=== PATIENT | female | born 1985 | race Caucasian/White ===

== ENCOUNTER 2019-11-29 15:58 | Emergency (ER) | payer OTHER, SELFPAY ==
[~2019-11-29] VITALS: Ht 157.5 cm; Wt 84.6 kg
[2019-11-29] MEDS ORDERED: HYPERTHYROID MED (16:16)
[2019-11-29] MEDS ORDERED: EMGALITY (16:16)
--- NOTE | 2019-11-29 16:19 | NUR ---
PT TO ED FOR CONSTANT LEFT SIDED AND STERNAL CHEST PAIN AND PRESSURE X4 DAYS WITH ASSOCIATED SOB. PT ATTRIBUTES S/S TO NEW HYPERTHYROID MEDICATION (UNKNOWN). PT CONNECTED TO ALL MONITORS. VSS. NO NEEDS EXPRESSED. CALL LIGHT WITHIN REACH. AWAITING EDMD ASSESSMENT.
[2019-11-29] MEDS ORDERED: KETOROLAC 30 MG/1 ML ONE (16:48)
[2019-11-29 16:52] VITALS: BP 137/93
--- NOTE | 2019-11-29 16:52 | NUR ---
PT RESTING IN ROOM. VSS. PT DECLINING MEDICATIONS AT THIS TIME. PT RATES PAIN 2-3/10. PT STATES, "JUST LYING HERE FEELS GOOD." PT EDUCATED THAT MEDICATION IS AVAILABLE IF SHE CHANGES HER MIND AND EDUCATED [employer] LIGHT USE. NO NEEDS EXPRESSED. CALLIGHT WITHIN REACH. LABS AND CXR COMPLETE. AWAITING RESULTS.
[2019-11-29 16:57] LABS: BASOPHILS # (AUTO) 0.03 x10^3/uL (0-0.1); BASOPHILS % (AUTO) 1 % (0-1); EOSINOPHILS # (AUTO) 0.18 x10^3/uL (0-0.4); EOSINOPHILS % (AUTO) 4 % (1-7); LYMPHOCYTES # (AUTO) 1.15 x10^3/uL (1-3.4); LYMPHOCYTES % (AUTO) 24 % (22-44); MD NO; MEAN CORPUSCULAR HEMOGLOBIN 30.2 pg (27.0-34.8); MEAN CORPUSCULAR HGB CONC 34.7 g/dL (32.4-35.8); MEAN CORPUSCULAR VOLUME 87.2 fL (80-100); MEAN PLATELET VOLUME 6.9 fL (7.4-10.4); MONOCYTES % (AUTO) 6 % (2-9); NEUTROPHILS # (AUTO) 3.23 x10^3/uL (1.8-6.8); NEUTROPHILS % (AUTO) 66 % (42-75); PLATELET COUNT 267 x10^3/uL (130-400); RED BLOOD COUNT 4.56 x10^6/uL (3.82-5.3); RED CELL DISTRIBUTION WIDTH 13.3 % (9.6-15.2)
[2019-11-29] MEDS ORDERED: KETOROLAC 30 MG/1 ML IM ONE (17:00)
[2019-11-29 17:06] LABS: ALBUMIN 3.7 g/dL (3.4-5.0); ANION GAP 5 mmol/L (5-15); CALCIUM 8.5 mg/dL (8.5-10.1); CHLORIDE 109 mmol/L (98-107); CREATININE 0.58 mg/dL (0.55-1.02)
[2019-11-29 17:10] LABS: TROPONIN I < 0.015 ng/mL (0.000-0.045)
--- NOTE | 2019-11-29 17:14 | NUR ---
all results back at this time. chart up for recheck.
== END 2019-11-29 17:32 | disposition home or self-care (01) ==
LOC: ED 17:20
DX: R07.89 Other chest pain (principal)
CPT/HCPCS: 36415; 71045; 80048; 82040; 84484; 85025; 85379; 93005; 99284